=== PATIENT | female | born 1970 | race Caucasian/White ===

== ENCOUNTER 2016-05-01 13:43 | Outpatient (CLI) | payer OTHER ==
--- NOTE | 2016-05-01 14:34 | DIAGNOSTIC IMAGING REPORT ---
PROCEDURE: US COMPLETE PELVIC W/TRANSVAG INDICATION: PELVIC PAIN,BLOATING TECHNIQUE: Transabdominal and endovaginal booth scale and color Doppler sonographic images of the female pelvis were obtained. COMPARISON: None. FINDINGS: TRANSABDOMINAL SCANS: Technically difficult exam secondary to body habitus and uterine position. Anteverted uterus measures approximately 7.3 cm in length. Grossly normal contour and echotexture. No obvious adnexal masses. TRANSVAGINAL SCANS: The uterus is vertically oriented in position and has a relatively homogeneous myometrial echotexture. No dominant mass. A few tiny Nabothian cysts are seen in the cervix. The endometrium is indistinct. No endometrial fluid collections. Grossly normal vascularity. The ovaries are not identified. No significant free pelvic fluid. No obvious pelvic mass. IMPRESSION: 1. Suboptimal exam given patient body habitus and uterine position. 2. No definite adnexal masses. 3. More detailed evaluation of the endometrium and adnexa could be performed with MR imaging of the pelvis or CT imaging.
== END 2016-05-01 23:00 ==
LOC: US SRH 13:43
DX: R10.2 Pelvic and perineal pain (principal); R14.0 Abdominal distension (gaseous)